=== PATIENT | female | born 1945 ===

== ENCOUNTER 2016-10-30 08:07 | Day surgery (SDC) | payer OTHER ==
[2016-10-30] MEDS ORDERED: Lidocaine Hydrochloride 10 ML INJ ONE (09:51)
[2016-10-30] MEDS ORDERED: Propofol 10 mg/ml Inj (20 ML) ONE (09:51)
[2016-10-30 14:20] VITALS: TEMP 98; O2SAT 100
[2016-10-30 14:22] VITALS: RESP 11
[2016-10-30 14:25] VITALS: BP 120/63; PULSE 58
== END 2016-10-30 11:20 | disposition home or self-care (01) ==
LOC: C.ENDO 08:07
PROVIDERS: ATTEND Internal Medicine Gastroenterology
DX: R10.13 Epigastric pain (principal); K22.2 Esophageal obstruction; R63.4 Abnormal weight loss; K44.9 Diaphragmatic hernia without obstruction or gangrene; E11.9 Type 2 diabetes mellitus without complications; I10 Essential (primary) hypertension; K29.70 Gastritis, unspecified, without bleeding
CPT/HCPCS: 43239; 82948; 88305; 88313; 88342; J2704

== ENCOUNTER 2016-11-05 07:23 | Day surgery (SDC) | payer OTHER ==
[2016-11-05 08:08] VITALS: BMI 24.0
[2016-11-05] MEDS ORDERED: Propofol 10 mg/ml Inj (20 ML) ONE (09:57)
[2016-11-05 11:17] VITALS: TEMP 96.8
[2016-11-05 11:18] VITALS: O2SAT 100
[2016-11-05 11:22] VITALS: BP 120/70; PULSE 68; RESP 15
== END 2016-11-05 11:15 | disposition home or self-care (01) ==
LOC: C.ENDO 07:23
PROVIDERS: ATTEND Internal Medicine Gastroenterology
DX: K57.30 Diverticulosis of large intestine without perforation or abscess without bleeding (principal); K64.8 Other hemorrhoids
CPT/HCPCS: 45378; 82948; J2704